=== PATIENT | female | born 1955 | race Two or more races ===

== ENCOUNTER → 2018-03-28 | Outpatient (CLI) | payer BC ==
[~2018-03-28] VITALS: Ht 157.5 cm; Wt 98.0 kg
== END | disposition home or self-care (01) ==
LOC: Rad HDHVI 08:10
PROVIDERS: ATTEND Internal Medicine Cardiovascular Disease
DX: E11.9 Type 2 diabetes mellitus without complications (principal); I20.9 Angina pectoris, unspecified; I77.6 Arteritis, unspecified; M06.9 Rheumatoid arthritis, unspecified
CPT/HCPCS: 78452; 93017; 93306; 96374; A9500